=== PATIENT | female | born 1990 | race Two or more races ===

== ENCOUNTER 2024-06-15 04:37 | Inpatient (IN) | payer OTHER ==
[~2024-06-15] VITALS: Ht 160 cm; Wt 72.6 kg
[2024-06-15] MEDS ORDERED: RINGERS SOLUTION,LACTATED 1,000 ML IV STA (05:21)
[2024-06-15] MEDS ORDERED: LACTULOSE 10 G/15 ML ML PO STA (05:40)
[2024-06-15] MEDS ORDERED: MINERAL OIL 30 ML BLIST.PACK PO STA (05:40)
[2024-06-15] MEDS ORDERED: MAGNESIUM HYDROXIDE 400 MG/5 ML ML PO STA (05:41)
[2024-06-15] MEDS ORDERED: MAGNESIUM HYDROXIDE 30 ML BLIST.PACK PO ONE (05:47)
[2024-06-15] MEDS ORDERED: MINERAL OIL 30 ML BLIST.PACK ONE (05:47)
[2024-06-15] MEDS ORDERED: LACTULOSE 20 G/30 ML BLIST.PACK ONE (05:47)
[2024-06-15 07:39] LABS: HEMOGLOBIN 12.2 g/dL (12.0-15.00); MEAN CELL VOLUME 84.3 fL (80.00-100.00); MEAN CORPUSCULAR HEMOGLOBIN 28.6 pg (27.00-32.0); MEAN CORPUSCULAR HGB CONC 33.9 g/dl (32.0-36.0); PLATELET COUNT 244 K/uL (150-450); RED BLOOD COUNT 4.27 M/uL (4.00-6.00); RED CELL DISTRIBUTION WIDTH 20.3 % (11.5-14.5)
[2024-06-15 07:43] LABS: ERYTHROCYTE SEDIMENTATION RATE 57 mm/hr
[2024-06-15 07:52] LABS: ALBUMIN 2.5 gm/dL (3.4-5.0); BILIRUBIN TOTAL 0.6 mg/dL (0.3-1.2); CALCIUM 8.7 mg/dL (8.5-10.1); CREATININE SERUM 0.58 mg/dL (0.55-1.02); GFR 117.63; GLOBULINA 4.8 G/DL (2.4-3.5); POTASSIUM 3.66 mEq/L (3.5-5.1); TOTAL PROTEIN 7.3 gm/dL (6.4-8.2)
[2024-06-15 08:22] LABS: INR 1.06; PROTHROMBIN TIME 11.5 SECONDS (9.0-11.5)
[2024-06-15 13:32] LABS: PH,URINE 6.5 (5.0-8.0); URINE APPEARANCE Clear; URINE BILIRRUBIN Negative (NEGATIVE); URINE BLOOD Small; URINE COLOR Dark Yellow; URINE GLUCOSE Negative (NEGATIVE); URINE KETONE 15 (NEGATIVE); URINE LEUKOCYTE Trace; URINE NITRATE Negative; URINE PROTEIN 30 (NEGATIVE)
[2024-06-15 13:36] LABS: URINE BACTERIA 127.2 uL (0.0-1933); URINE EPITHELIAL CELLS 38.4 uL (0.0-38.8); URINE RBC 43.2 uL (0.0-20.8); URINE WBC 8.3 uL (0.0-23.2)
[2024-06-15 14:08] LABS: URINE CAST 0.45 uL (0.0-1.40)
[2024-06-15] MEDS ORDERED: CEFTRIAXONE SODIUM 2,000 MG VIAL ONE (16:04)
[2024-06-15] MEDS ORDERED: METRONIDAZOLE/SODIUM CHLORIDE 500 MG/100 ML PIGGYBACK IV ONE (16:04)
[2024-06-15 16:25] VITALS: BP 109/66; O2SAT 100
[2024-06-15 16:49] VITALS: BP 109/66
[2024-06-15] MEDS ORDERED: METRONIDAZOLE/SODIUM CHLORIDE 100 ML IV SCH (17:00)
[2024-06-15] MEDS ORDERED: DOCUSATE SODIUM 100MG CAP PO SCH (17:00)
[2024-06-15] MEDS ORDERED: CEFTRIAXONE SODIUM 2,000 MG in 0.9 % SODIUM CHLORIDE 100 ML IV SCH (17:00)
[2024-06-15 21:13] VITALS: BP 108/86
[2024-06-16 01:06] VITALS: BP 103/68
[2024-06-16 08:19] LABS: HEMATOCRIT 32.7 % (36.0-45.00); HEMOGLOBIN 11.1 g/dL (12.0-15.00); MEAN CELL VOLUME 85.3 fL (80.00-100.00); MEAN CORPUSCULAR HEMOGLOBIN 28.9 pg (27.00-32.0); MEAN CORPUSCULAR HGB CONC 33.9 g/dl (32.0-36.0); PLATELET COUNT 221 K/uL (150-450); RED BLOOD COUNT 3.84 M/uL (4.00-6.00); RED CELL DISTRIBUTION WIDTH 20.1 % (11.5-14.5)
[2024-06-16 11:49] VITALS: BP 98/63
[2024-06-16 15:47] VITALS: BP 98/62
[2024-06-16] MEDS ORDERED: SIMETHICONE 125 MG CAPSULE PO SCH (18:00)
[2024-06-17 01:00] VITALS: BP 105/70
[2024-06-17 08:35] VITALS: BP 102/61
[2024-06-17] MEDS ORDERED: KETOROLAC TROMETHAMINE 10 MG TABLET PO SCH (12:00)
[2024-06-17 17:39] VITALS: BP 111/70
[2024-06-18] VITALS: BP 112/73
[2024-06-18] MEDS ORDERED: METRONIDAZOLE/SODIUM CHLORIDE 500 MG/100 ML PIGGYBACK IV ONE (05:09)
[2024-06-18 08:00] VITALS: BP 119/75
== END 2024-06-18 10:41 | disposition home or self-care (01) | DRG 948 ==
LOC: ER 04:37 → OB/GYN 17:13
PROVIDERS: Obstetrics & Gynecology; ADMIT Obstetrics & Gynecology; ATTEND Obstetrics & Gynecology
PROC: BW21YZZ Computerized Tomography (CT Scan) of Abdomen and Pelvis using Other Contrast (ICD-10-PCS; principal; 2024-06-15)
PROC: BW4GZZZ Ultrasonography of Pelvic Region (ICD-10-PCS; 2024-06-15)
DX: G89.18 Other acute postprocedural pain (principal); T81.49XA Infection following a procedure, other surgical site, initial encounter; N73.9 Female pelvic inflammatory disease, unspecified; K59.01 Slow transit constipation; Y65.8 Other specified misadventures during surgical and medical care; Z20.822 Contact with and (suspected) exposure to COVID-19